=== PATIENT | male | born 1980 | race Caucasian/White ===

== ENCOUNTER 2018-07-21 11:42 | Day surgery (SDC) | payer OTHER ==
[~2018-07-21] VITALS: Ht 167.6 cm; Wt 89.7 kg
[2018-07-21] MEDS ORDERED: no meds (12:23)
[2018-07-21 12:25] VITALS: Ht 167.6 cm; Wt 89.7 kg
[2018-07-21 12:26] VITALS: BP 126/89; PULSE 97; RESP 18
--- NOTE | 2018-07-21 14:43 | PREAC ---
Date/Time of Note Date/Time of Note DATE: 07/21/18 TIME: 14:42 Anesthesia Eval and Record Evaluation Time Pre-Procedure Interview DATE: 07/21/18 TIME: 14:42 Age 38 Sex male NPO: 8 hrs Preoperative diagnosis abd pain Planned procedure EGD, Colonoscopy Past Medical History Past Medical History: Includes Cardio: HTN Surgery & Anesthesia Issues No known issue Meds Anticoagulation: No Beta Shirley within 24 hr: No Reason Beta Shirley not given: Pt. not on B-Shirley Reported Medications [no meds] No Conflict Check 07/21/18 Meds reviewed: Yes Allergies Coded Allergies: No Known Allergy (Unverified , 07/21/18) Allergies Reviewed: Yes Labs/Studies Labs Reviewed: Reviewed by anesthesiologist test: Negative Pre-procedure Exam Last vitals Vital Signs Date Temp Pulse Resp B/P (MAP) Pulse Ox O2 O2 Flow FiO2 Time Delivery Rate 07/21/18 97.2 97 18 126/89 97 Room Air 12:26 (101) Airway: Adequate mouth opening, Adequate thyromental dist Mallampati: Mallampati II Teeth: Normal Lung: Normal Heart: Normal ASA Physical Status ASA physical status: 3 Emergency: None Planned Anesthetic General/MAC: Mask Pre-operative Attestations Prior to commencing anesthesia and surgery, the patient was re-evaluated, there was verification of: *The patient's identity *The results of appropriate recent lab work and preoperative vital signs *The above evaluation not changing prior to induction *Anesthetic plan, risk benefits, alternative and complications discussed with patient/family; questions answered; patient/family understands, accepts and wishes to proceed. KEITH TEJADA Jul 21, 2018 14:43
--- NOTE | 2018-07-22 14:34 | PAC ---
Date/Time of Note Date/Time of Note DATE: 07/22/18 TIME: 14:34 Post-Anesthesia Notes Post-Anesthesia Note Last documented vital signs Vital Signs Date Temp Pulse Resp B/P (MAP) Pulse Ox O2 O2 Flow FiO2 Time Delivery Rate 07/21/18 97.2 97 18 126/89 97 Room Air 12:26 (101) Activity: WNL Respiratory function: WNL Cardiovascular function: WNL Mental status: Baseline Pain reasonably controlled: Yes Hydration appropriate: Yes Nausea/Vomiting absent: Yes KEITH TEJADA Jul 22, 2018 14:34
== END 2018-07-21 16:42 | disposition home or self-care (01) ==
LOC: EDSEX 11:42 → GIL 11:42
PROVIDERS: ATTEND Internal Medicine Gastroenterology
DX: K92.1 Melena (principal); K29.30 Chronic superficial gastritis without bleeding; K64.8 Other hemorrhoids; I10 Essential (primary) hypertension
CPT/HCPCS: 43239; 45380; Z7610; 88305; 88312